=== PATIENT | female | born 1975 | race Caucasian/White ===

== ENCOUNTER 2017-04-10 05:07 | Day surgery (SDC) | payer BC, OTHER ==
[2017-04-08 14:33] VITALS: BMI 30.7
[2017-04-10] MEDS ORDERED: ROPIVACAINE HCL 0.5% 30ML VIAL ONE (07:27)
[2017-04-10] MEDS ORDERED: MIDAZOLAM HCL 2 MG/2 ML SINGLE DOSE VIAL ONE ×4 (07:28)
[2017-04-10] MEDS ORDERED: PROPOFOL 20 ML ONE (07:28)
[2017-04-10] MEDS ORDERED: ePHEDrine SULFATE 50 MG/1 ML AMPULE ONE (07:28)
[2017-04-10] MEDS ORDERED: LIDOCAINE HCL/PF 2% SDV 5ML VIAL ONE (07:28)
[2017-04-10] MEDS ORDERED: DEXAMETHASONE SOD PHOSPHATE 4 MG/1 ML VIAL ONE (07:28)
[2017-04-10] MEDS ORDERED: SUCCINYLCHOLINE CHLORIDE 200 MG/10 ML VIAL ONE (07:28)
[2017-04-10] MEDS ORDERED: PHENYLEPHRINE HCL 10 MG/1 ML SINGLE DOSE VIAL ONE ×2 (07:32→07:33)
[2017-04-10] MEDS ORDERED: ceFAZolin SODIUM 1 GM VIAL IVPB ONE (08:12)
[2017-04-10] MEDS ORDERED: PROMETHAZINE HCL 25 MG/1 ML VIAL IVPUSH PRN (08:23)
[2017-04-10] MEDS ORDERED: ONDANSETRON 4 MG/2 ML VIAL IVPUSH PRN (08:23)
--- NOTE | 2017-04-10 08:24 | HP ---
[facility]ellite [facility] - Chief Complaint Chief Complaint: right wrist fx - Past Medical History Allergies/Adverse Reactions: Allergies Allergy/AdvReac Type Severity Reaction Status Date / Time thimerosal Allergy Severe Rash Verified 04/10/17 07:03 ...LMP: 03/22/17 - Current Medications Current Medications: Home Medications Medication Instructions Recorded Norgestrel-Ethinyl Estradiol 1 each PO DAILY 04/08/17 [Cryselle-28 Tablet] Hydrocodone/Acetaminophen [Orange 1 - 2 each PO Q6H #40 tablet MDD 8 04/10/17 5-325 Tablet] Satellite Physical Exam - Physical Examination Vital Signs: Vital Signs Period Temp Pulse Resp BP Sys/Escalante Pulse Ox Last 24 Hr 98.0 F 75 18 129/83 98 General Appearance: Well Nourished, Well Developed, Alert & Oriented x3 ENT: Clear Lung: Normal air movement Heart: Regular rate & rhythm Extremities: Other (right wrist- splint intact, + swelling, + ttp, decr rom, nvi xrays shows displaced distal radius fx) Neurological: Intact, Alert, Oriented Satellite Impression/Plan - Impression/Plan Impression: right distal radius fx Operative Procedure: right distal radius orif Date to be Performed: 04/10/17
[2017-04-10] MEDS ORDERED: LACTATED RINGERS SOLUTION 1,000 ML IV SCH (08:30)
--- NOTE | 2017-04-10 09:01 | OP ---
Operative Note - Note: Operative Date: 04/10/17 ([facility]) Pre-Operative Diagnosis: right distal radius fx Operation: right distal radius orif Post-Operative Diagnosis: Same as Pre-op Surgeon: Aj Marshall Wind Operations Manager: Vamsi Cruz Anesthesia: Local, MAC Estimated Blood Loss (mls): 0 (tourniquet) Operative Report Dictated: Yes
[2017-04-10 11:30] VITALS: TEMP 98.2
[2017-04-10 13:44] VITALS: BP 121/70; PULSE 64
--- NOTE | 2017-04-19 11:09 | SPEC ---
DATE OF SURGERY: 04/10/2017 OPERATION: Open reduction internal fixation, right distal radius fracture, and brachioradialis tenotomy. PREOPERATIVE DIAGNOSIS: Comminuted intraarticular displaced distal radius fracture. POSTOPERATIVE DIAGNOSIS: Comminuted intraarticular displaced distal radius fracture. SURGEON: Aj Marshall M.D. SHIP PILOT: Matthew Jerome M.D. FUR[employer]ER SHOP SUPERVISOR: Kaz Mckoy CRNA ANESTHESIA: Right interscalene block; MAC anesthesia. DRAINS: None. COMPLICATIONS: None. SPECIMENS: None. BLOOD LOSS: Minimal. BLOOD GIVEN: None. FLUID REPLACEMENT: 500 mL INDICATIONS: This is a 41-year-old right-hand dominant female with a preoperative diagnosis of a comminuted intraarticular right distal radius fracture. After understanding the potential risks, complications, alternatives and benefits of surgery as well as non-surgical treatment, she elected to go forward with this procedure. The entire case was done under 3.8 loupe magnification. A typical FCR approach was marked out with a marking pen and incision made with No. 15 scalpel blade. Subcutaneous hemostasis was achieved with a bipolar cautery. The radial artery was retracted gently in a radial direction and ulnar to this, using a fresh No. 15 scalpel blade, the muscular fascia was incised. Blunt dissection was done with my index finger down to the volar aspect of the distal radius. Weitlaner retractors were placed deep into the wound for visualization. A periosteal elevator was used to do subperiosteal dissection, exposing the fracture site. There was a main transverse component to the distal radius fracture. In addition, there were several pieces, some extending towards the radial carpal joint and some towards the distal radial ulnar joint. The fracture site was copiously irrigated and washed out. All debris, including hematoma and muscle, were removed. A provisional reduction was performed and seemed to come together quite nicely. There was a small metaphyseal defect. X-rays were taken in A-P and lateral planes documenting excellent position of the fracture fragments, restoring radial height inclination and volar tilt. Next, a standard [employer] left volar low profile DVR plate was placed on the volar aspect of the distal radius. Two K-wires were placed and x-rays were taken documenting excellent position, length and subchondral position. Next, the central 3.5-mm screw was placed in a standard fashion. This was 14 mm in length and the second-most ulnar proximal row screw was placed. This was a 24-mm partially threaded locking screw. X-rays were taken again, documenting excellent position and support of the subchondral bone. The rest of the screws were then put in, first 2 additional purple proximal screws of 12 and 14 mm in length for 6 cortices proximally and then the silver drill bit was used to put in the remaining 6 screws of both the proximal and distal row from 18 mm to 24 mm of length, all partially threaded locking screws. All of the guides were removed and passed off the field. Final x-rays were taken in A-P and lateral planes. I was quite happy with the fracture reduction position, position of the radial carpal joint, distal radial ulnar joint length, height and tilt. MATTHEW JEROME M.D. [id number]
== END 2017-04-10 13:46 | disposition home or self-care (01) ==
LOC: JASU-SURG 05:07
PROVIDERS: ATTEND Orthopaedic Surgery
PROC: 0PSH04Z Reposition Right Radius with Internal Fixation Device, Open Approach (ICD-10-PCS; principal; 2017-04-10 08:00)
DX: S52.531A Colles' fracture of right radius, initial encounter for closed fracture (principal); X58.XXXA Exposure to other specified factors, initial encounter; Y93.9 Activity, unspecified; Y92.9 Unspecified place or not applicable; Y99.9 Unspecified external cause status
CPT/HCPCS: 76000-TC; 94760